=== PATIENT | male | born 1985 | race American Indian/Alaskan Native ===

== ENCOUNTER 2018-03-27 20:33 | Emergency (ER) | payer OTHER ==
[2018-03-27 20:38] VITALS: TEMP 97.9; O2SAT 99
[2018-03-27] MEDS ORDERED: Tdap Vaccine 0.5 ml Vial (10-64 yrs) IM ONE (21:00)
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
[2018-03-28 00:19] VITALS: BP 138/77; PULSE 81; RESP 16
--- NOTE | 2018-03-28 07:27 | RAD ---
HISTORY: CHEST PAIN COMPARISON: No prior. TECHNIQUE: Chest PA and lateral FINDINGS: LUNGS: No active pulmonary disease. PLEURA: No significant pleural effusion identified. No pneumothorax apparent. CARDIOVASCULAR: Normal. OSSEOUS STRUCTURES: No significant abnormalities. VISUALIZED UPPER ABDOMEN: Normal. OTHER FINDINGS: None. IMPRESSION: No active disease.
--- NOTE | 2018-03-28 07:34 | RAD ---
HISTORY: HAND INJURY COMPARISON: No prior FINDINGS: BONES: Normal. No fracture. JOINTS: Normal. No osteoarthritis. SOFT TISSUE: Normal. OTHER FINDINGS: None . IMPRESSION: Normal Bone Xray.
== END 2018-03-28 00:19 | disposition home or self-care (01) ==
LOC: H.ER 20:33
DX: S40.812A Abrasion of left upper arm, initial encounter (principal); R07.89 Other chest pain; V43.52XA Car driver injured in collision with other type car in traffic accident, initial encounter; Y92.410 Unspecified street and highway as the place of occurrence of the external cause